=== PATIENT | female | born 1995 | race American Indian/Alaskan Native ===

== ENCOUNTER 2016-11-12 08:32 | Emergency (ER) | payer SELFPAY ==
[2016-11-12 09:33] LABS: Basophils % (Auto) 0.1 % (0.0-1.8); Eosinophils % (Auto) 0.1 % (0.0-4.3); Hemoglobin 15.2 gm/dl (10.1-14.3); Mean Corpuscular HGB Conc 33 % (30-34); Mean Corpuscular Hemoglobin 30 pg (28-32); Mean Corpuscular Volume 91 fl (79-97); Platelet Count 144 K/mm3 (140-440); Red Blood Count 5.07 M/mm3 (3.65-5.03); Red Cell Distribution Width 12.8 % (13.2-15.2); White Blood Count 16.6 K/mm3 (4.5-11.0)
[2016-11-12] MEDS ORDERED: NACL 0.9% 1000 ML 1,000 ML IV ONE ×2 (10:09→12:40)
[2016-11-12] MEDS ORDERED: ZOFRAN IV ONE (10:10)
--- NOTE | 2016-11-12 10:36 | Emergency Department Report ---
HPI - General Chief Complaint: Abdominal Pain Time Seen by Provider: 11/12/16 10:09 - HPI HPI: PATIENT WITH PELVIC PAIN, SEVERE NAUSEA, VOMITING, ABOUT 6 WEEKS . PATIENT WITH SIMILAR SYMPTOMS HER LAST . PATIENT STATES IT IS DIFFICULT FOR HER TO KEEP FOOD DOWN DUE TO HER SYMPTOMS. ED Past Medical Hx - Past Medical History Previous Medical History?: Yes Additional medical history: anemia - Surgical History Past Surgical History?: Yes Additional Surgical History: bilateral elbow surgery - Social History Smoking Status: Never Smoker - Medications Home Medications: Home Medications Medication Instructions Recorded Confirmed Last Taken Type No Known Home Medications [No 11/12/16 11/12/16 Unknown History Reported Home Medications] ED Review of Systems ROS: Stated complaint: PREG/N/V X 3 DAYS Other details as noted in HPI Comment: All other systems reviewed and negative Constitutional: no symptoms reported Respiratory: no symptoms reported Gastrointestinal: nausea, vomiting Physical Exam - Physical Exam Vital Signs: Vital Signs 11/12/16 08:40 Temperature 98.1 F Pulse Rate 90 Respiratory 16 Rate Blood Pressure 121/60 O2 Sat by Pulse 100 Oximetry Physical Exam: GENERAL: The patient is well-developed well-nourished. HEENT: Normocephalic. Atraumatic. Extraocular motions are intact. Patient has moist mucous membranes. NECK: Supple. No meningitic signs are noted. There is no adenopathy noted. CHEST/LUNGS: Clear to auscultation. There is no respiratory distress noted. HEART/CARDIOVASCULAR: Regular. There is no tachycardia. There is no gallop rub or murmur. ABDOMEN: Abdomen is soft, nontender. Patient has normal bowel sounds. There is no abdominal distention. SKIN: There is no rash. There is no edema. There is no diaphoresis. NEURO: The patient is awake, alert, and oriented. The patient is cooperative. The patient has no focal neurologic deficits. The patient has normal speech and gait. Cranial nerves II through XII grossly intact, no drift. Negative Romberg MUSCULOSKELETAL: good rom in all ext ED Course Vital Signs 11/12/16 08:40 Temperature 98.1 F Pulse Rate 90 Respiratory 16 Rate Blood Pressure 121/60 O2 Sat by Pulse 100 Oximetry ED Medical Decision Making - Lab Data Result diagrams: 11/12/16 09:00 11/12/16 09:00 Critical care attestation.: If time is entered above; I have spent that time in minutes in the direct care of this critically ill patient, excluding procedure time. ED Disposition Clinical Impression: Dehydration, Vomiting affecting Disposition: DC-01 TO HOME OR SELFCARE Is pt being admited?: No Does the pt Need Aspirin: No Condition: Stable Instructions: Abdominal Pain (ED) Referrals: PRIMARY CARE, [Primary Care Provider] - 3-5 Days DAVID CHADWICK MD [Staff Physician] - 3-5 Days Forms: Work/School Release Form(ED)
[2016-11-12 11:11] LABS: Alanine Aminotransferase 10 units/L (7-56); Albumin 4.6 g/dL (3.9-5); Albumin/Globulin Ratio 1.2 %; Alkaline Phosphatase 65 units/L (35-129); Anion Gap 22 mmol/L; Blood Urea Nitrogen 9 mg/dL (7-17); Calcium 9.5 mg/dL (8.4-10.2); Carbon Dioxide 18 mmol/L (22-30); Chloride 100.1 mmol/L (98-107); Glucose 69 mg/dL (65-100); Potassium 3.9 mmol/L (3.6-5.0); Sodium 136 mmol/L (137-145); Total Protein 8.6 g/dL (6.3-8.2)
--- NOTE | 2016-11-12 11:42 | Ultrasound Report ---
ULTRASOUND OB LESS THAN 14 WEEKS - TRANSABDOMINAL AND TRANSVAGINAL INDICATION: Pelvic pain. Serum beta-hCG 46,202 units. COMPARISON: None similar at this institution. FINDINGS: Transabdominal and transvaginal pelvic sonography performed in this patient with LMP of 09/25/2016 and estimated menstrual age of 6 weeks and 6 days. It demonstrates an anteverted, gravid uterus estimated at 7.9 x 4.8 x 4.9 cm with a single, viable intrauterine gestation with heart rate of 126 beats per minute. Mean gestational sac diameter of 2.09 cm corresponds to 7 weeks and zero days. Mean crown-rump length of 0.39 cm corresponds to 6 weeks and zero days. Approximately 3 mm yolk sac also seen as also small crescentic subchorionic hemorrhage. Trace pelvic free fluid. Unremarkable ovaries, approximately 3.6 x 1.7 x 3.0 cm on the right and 2.5 x 1.1 x 1.6 cm on the left. CONCLUSION: 1. Single, live intrauterine gestation with an ultrasound estimated age of 6 weeks and 4 days and HUY of 07/04/2017. 2. Other findings, as above. Thank you for the opportunity to participate in this patient's care.
[2016-11-12] MEDS ORDERED: REGLAN ONE (12:37)
[2016-11-12] MEDS ORDERED: REGLAN IV ONE (12:40)
[2016-11-12 13:05] LABS: Bilirubin,Urine NEG (Negative); Blood,Urine NEG (Negative); Ketones,Urine 80 mg/dL (Negative); Leukocyte Esterase,Urine TR (Negative); Mucus,Urine 3+ /HPF; Nitrite,Urine NEG (Negative)
[2016-11-12 14:11] VITALS: BP 104/65
== END 2016-11-12 14:11 | disposition home or self-care (01) ==
LOC: ED 08:32
DX: O21.9 Vomiting of pregnancy, unspecified (principal); Z3A.01 Less than 8 weeks gestation of pregnancy
CPT/HCPCS: 36415; 76801; 76817; 80053; 81001; 82962; 83690; 84702; 85025; 86850; 86900; 86901; 96361; 96374; 96375; 99284; J2405; J2765; J7030

== ENCOUNTER 2018-04-30 18:58 | Emergency (ER) | payer SELFPAY ==
[2018-04-30 19:07] VITALS: BP 116/73
--- NOTE | 2018-04-30 19:41 | Emergency Department Report ---
ED Abdominal Pain HPI - General Chief Complaint: Abdominal Pain Stated Complaint: PAIN Time Seen by Provider: 04/30/18 19:35 Source: patient, family Mode of arrival: Ambulatory Limitations: No Limitations - History of Present Illness Initial Comments: pt with + home - LMP 03/20- here today c/o sharp pelvic pain+ vaginal discharge that has a "smell"," swollen boobs with milk coming out of them", denies vaginal bleeding MD Complaint: abdominal pain, other (discharge) -: This afternoon Location: suprapubic Radiation: none Migration to: no migration Severity: severe Severity scale (0 -10): 8 Quality: sharp Consistency: constant Improves With: nothing Worsens With: nothing Associated Symptoms: other (vaginal discharge). denies: nausea, vomiting, diarrhea, fever, chills, constipation, dysuria, hematemesis, hematochezia, melena, hematuria, anorexia, syncope - Related Data Previous Rx's Medication Instructions Recorded Last Taken Type Nitrofurantoin Monohyd/M-Cryst 100 mg PO BID #20 capsule 02/03/18 Unknown Rx [Macrobid 100 mg Capsule] cephALEXin [Keflex] 500 mg PO Q8HR #21 cap 03/11/18 Unknown Rx Vit-Fe Fumar-FA [ 1 tab PO QDAY #30 tablet 04/30/18 Unknown Rx Vitamin] metroNIDAZOLE 0.75% [Vandazole 1 applicator VG QHS 7 Days #1 tube 04/30/18 Unknown Rx 0.75% VAGINAL] Allergies Allergy/AdvReac Type Severity Reaction Status Date / Time No Known Allergies Allergy Verified 03/11/18 13:00 ED Review of Systems ROS: Stated complaint: PAIN Other details as noted in HPI Constitutional: denies: chills, fever ENT: denies: ear pain Respiratory: denies: cough, shortness of breath, wheezing Cardiovascular: denies: chest pain Gastrointestinal: abdominal pain. denies: nausea, vomiting, diarrhea, other Genitourinary: discharge. denies: urgency, dysuria, frequency, hematuria, abnormal menses Musculoskeletal: denies: back pain, joint swelling, arthralgia Skin: denies: rash Neurological: denies: headache ED Past Medical Hx - Past Medical History Previous Medical History?: Yes Additional medical history: anemia - Surgical History Past Surgical History?: Yes Additional Surgical History: bilateral elbow surgery - Family History Family history: no significant (painful) - Social History Smoking Status: Never Smoker Substance Use Type: None - Medications Home Medications: Home Medications Medication Instructions Recorded Confirmed Last Taken Type Nitrofurantoin Monohyd/M-Cryst 100 mg PO BID #20 capsule 02/03/18 Unknown Rx [Macrobid 100 mg Capsule] cephALEXin [Keflex] 500 mg PO Q8HR #21 cap 03/11/18 Unknown Rx Vit-Fe Fumar-FA [ 1 tab PO QDAY #30 tablet 04/30/18 Unknown Rx Vitamin] metroNIDAZOLE 0.75% [Vandazole 1 applicator VG QHS 7 Days #1 tube 04/30/18 Unknown Rx 0.75% VAGINAL] ED Physical Exam - General Limitations: No Limitations (my) General appearance: alert, in no apparent distress - Head Head exam: Present: atraumatic, normocephalic, normal inspection - Eye Eye exam: Present: normal appearance, PERRL, EOMI Pupils: Present: normal accommodation - ENT ENT exam: Present: normal exam, normal orophraynx - Neck Neck exam: Present: normal inspection, tenderness - Respiratory Respiratory exam: Present: normal lung sounds bilaterally, respiratory distress - Cardiovascular Cardiovascular Exam: Present: regular rate, normal rhythm, normal heart sounds - GI/Abdominal GI/Abdominal exam: Present: soft, normal bowel sounds. Absent: distended, tenderness, guarding, rebound, rigid - Extremities Exam Extremities exam: Present: normal inspection, full ROM, normal capillary refill, other (No cce. + 2 pulses in all extremities, no neurovascular compromise). Absent: tenderness, pedal edema, joint swelling, calf tenderness - Back Exam Back exam: Present: normal inspection, full ROM - Neurological Exam Neurological exam: Present: alert, oriented X3, normal gait - Psychiatric Psychiatric exam: Present: normal affect, normal mood - Skin Skin exam: Present: warm, dry, intact, normal color. Absent: rash ED Course Vital Signs 04/30/18 19:02 Temperature 99.2 F Pulse Rate 97 H Respiratory 18 Rate Blood Pressure 116/73 O2 Sat by Pulse 100 Oximetry - Reevaluation(s) Reevaluation #1: 04/30/18 21:32 Patient with positive and positive BV. Pelvic exam shows large amount of foul-smelling discharge. I discussed the patient whether she wants to be treated for gonorrhea and chlamydia are weight for the past and she chose to be treated so she was given Rocephin 250 mg IM, Zithromax 1 g by mouth and patient will UTI and she said that she was given prescription for for urinary tract infection but she just filled it and did not take it. She said she was prescribed Keflex. Record show that the patient was prescribed Keflex and I gave her a dose of 500 mg here and told her she needs to start taking Keflex in the morning to cover UTI. She is away then ultrasound. ED Medical Decision Making - Lab Data Lab Results 04/30/18 04/30/18 04/30/18 Range/Units 20:03 20:43 21:09 HCG, Quant 25012 H (0-4) mIU/mL Urine Color Yellow (Yellow) Urine Turbidity Cloudy (Clear) Urine pH 7.0 (5.0-7.0) Ur Specific [place] 1.018 (1.003-1.030) Urine Protein <15 mg/dl (Negative) mg/dL Urine Glucose (UA) Neg (Negative) mg/dL Urine Ketones Neg (Negative) mg/dL Urine Blood Neg (Negative) Urine Nitrite Neg (Negative) Urine Bilirubin Neg (Negative) Urine Urobilinogen 4.0 (<2.0) mg/dL Ur Leukocyte Esterase Neg (Negative) Urine WBC (Auto) 9.0 H (0.0-6.0) /HPF Urine RBC (Auto) 5.0 (0.0-6.0) /HPF U Epithel Cells (Auto) 3.0 (0-13.0) /HPF Urine Bacteria (Auto) 1+ (Negative) /HPF Amorphous Crystals 1+ Urine Mucus 1+ /HPF Urine HCG, Qual Positive A (Negative) Urine culture pending Wet prep positive bacterial vaginosis, negative trichomoniasis and negative yeast Gonorrhea and chlamydia is pending - Radiology Data Radiology results: report reviewed Ultrasound transvaginal and transabdominal dictated by radiologist report reviewed by myself. Please see details below Findings [facility] [address] [place] [address] Ultrasound Report Signed Patient: DARRIAN NOEL MR#: [id number] : 1995 Acct:[id number] Age/Sex: 23 / F ADM Date: 04/30/18 Loc: ED Attending Dr: Ordering Physician: DUTCH HAMLIN Date of Service: 04/30/18 Procedure(s): US OB transvaginal Accession Number(s): [id number] cc: DUTCH HAMLIN FINAL REPORT EXAM: US OB TRANSVAGINAL HISTORY: with pelvic pain COMPARISON: None available. TECHNIQUE: Several real-time grayscale and color Doppler images were obtained. Transabdominal and transvaginal exam. FINDINGS: The uterus measures 8.0 x 4.3 x 6.1 centimeters. There is a single live IUP. Estimated gestational age 6 weeks 1 day. Estimated delivery date December 23, 2018. heart rate 118 beats per minute. Yolk sac is present. The right ovary measures 3.9 x 2.0 x 2.9 centimeters. There is a 1.9 centimeter right ovarian cystic structure which is thick walled. This may reflect corpus luteum. The left ovary measures 2.3 x 1.0 x 1.9 centimeters. There is vascular flow to the bilateral ovaries. No adnexal masses. Trace free pelvic fluid, within physiologic limits. IMPRESSION: Single live IUP. Estimated gestational age 6 weeks 1 day. Estimated delivery date December 23, 2018. 1.9 centimeter right ovarian cystic structure which may reflect corpus luteum. Transcribed By: LMA Dictated By: STEFANO FORRSET MD Electronically Authenticated By: STEFANO FORREST MD Signed Date/Time: 04/30/182223 DD/ 21 TD/TT: 04/30/182221 Findings [facility] [address] [place] [address] Patient with positive and positive BV. Pelvic exam shows large amount of foul-smelling discharge. I discussed the patient whether she wants to be treated for gonorrhea and chlamydia are weight for the past and she chose to be treated so she was given Rocephin 250 mg IM, Zithromax 1 g by mouth and patient will UTI and she said that she was given prescription for for urinary tract infection but she just filled it and did not take it. She said she was prescribed Keflex. Record show that the patient was prescribed Keflex . Patient discharged home in stable condition with prescription. She is to follow up with [facility] and pain is controlled. X-ray showing single live education at 6 weeks and 4 days and x-ray and laboratory results given to patient. - Medical Decision Making [facility] [address] [place] [address] Ultrasound Report Signed Patient: DARRIAN NOEL MR#: [id number] : 1995 Acct:[id number] Age/Sex: 21 / F ADM Date: 11/12/16 Loc: ED Attending Dr: Ordering Physician: WILL LUCIANO MD Date of Service: 11/12/16 Procedure(s): US OB transvaginal Accession Number(s): [id number] cc: WILL LUCIANO MD ULTRASOUND OB LESS THAN 14 WEEKS - TRANSABDOMINAL AND TRANSVAGINAL INDICATION: Pelvic pain. Serum beta-hCG 46,202 units. COMPARISON: None similar at this institution. FINDINGS: Transabdominal and transvaginal pelvic sonography performed in this patient with LMP of 09/25/2016 and estimated menstrual age of 6 weeks and 6 days. It demonstrates an anteverted, gravid uterus estimated at 7.9 x 4.8 x 4.9 cm with a single, viable intrauterine gestation with heart rate of 126 beats per minute. Mean gestational sac diameter of 2.09 cm corresponds to 7 weeks and zero days. Mean crown-rump length of 0.39 cm corresponds to 6 weeks and zero days. Approximately 3 mm yolk sac also seen as also small crescentic subchorionic hemorrhage. Trace pelvic free fluid. Unremarkable ovaries, approximately 3.6 x 1.7 x 3.0 cm on the right and 2.5 x 1.1 x 1.6 cm on the left. CONCLUSION: 1. Single, live intrauterine gestation with an ultrasound estimated age of 6 weeks and 4 days and HUY of 07/04/2017. 2. Other findings, as above. Thank you for the opportunity to participate in this patient's care. Transcribed By: RS Dictated By: IJMMY GRUBER MD Electronically Authenticated By: JIMMY GRUBER MD Signed Date/Time: 11/12/16 1135 DD/ 1124 TD/TT: 11/12/16 113 Critical care attestation.: If time is entered above; I have spent that time in minutes in the direct care of this critically ill patient, excluding procedure time. ED Disposition Clinical Impression: Vaginal discharge during in first trimester, Pelvic pain during pr egnancy, Bacterial vaginosis, Concern about STD in female without diagnosis UTI (urinary tract infection) during Qualifiers: Trimester: first trimester Qualified Code(s): O23.41 - Unspecified infection of urinary tract in , first trimester Disposition: TO HOME OR SELFCARE Is pt being admited?: No Does the pt Need Aspirin: No Condition: Stable Instructions: Bacterial Vaginosis (ED), Sexually Transmitted Diseases (ED), Safe Sex (ED), Urinary Tract Infection in Women (ED), Abdominal Pain in (ED) Additional Instructions: Your hormone tests today is 34,999 Please follow-up with [facility] as discussed within the next 2-3 days If he experiences vaginal bleeding and increase abdominal pain, return to the emergency room ALEYDA You have a urinary tract infection and U are given medication for this. Please start taking Keflex as prescribed previously. He received first dose emergency room today and you can start taking the pills that you have at home tomorrow Start taking an vitamin Increase the fluid intake facilities to 3 L of water daily You have bacterial vaginosis and she is to use MetroGel for treatment. Use as prescribed You were treated for gonorrhea and chlamydia due to vaginal discharge and that is malodorous. Your concern for STDs so was treated with Zithromax and Rocephin IM 1 dose. You will need to have a repeat urinary tests with the [facility] when you completely your antibiotic and also [facility] department in 7-10 days or we [facility] for repeat STD check. He can also return to medical records department in 4 days to get gonorrhea and chlamydia test results. Please refrain from drinking all call while on MetroGel as it can cause upset stomach and Rahda. Please do not have any sexual activity until your clear for STD. Have your partner get checked for STD HOW SHOULD I USE METRONIDAZOLE VAGINAL (METROGEL-VAGINAL, NUVESSA, VANDAZOLE)? Follow all directions on your prescription label. Do not use this medicine in larger or smaller amounts or for longer than recommended. Use this medicine at bedtime. Metronidazole vaginal is often given as a single dose. However, you might need to use the medicine for 5 nights in a row. Follow your doctor's dosing instructions very carefully. Do not take metronidazole vaginal by mouth. It is for use only in the vagina. Read all patient information, medication guides, and instruction sheets provided to you. Ask your doctor or pharmacist if you have any questions. Gently wash your vaginal area before applying the medicine. Wash your hands before and after handling the medicine tube or vaginal applicator. Insert the medicine directly into your vagina using the applicator provided. The single-use applicator is for one use only. Throw the applicator away after one use, even if there is still some medicine left in it after inserting your dose. If your medicine comes with only one plastic applicator, wash and rinse the applicator after each use. Throw away the applicator after you are finished using this medicine. Use this medicine for the full prescribed length of time. Your symptoms may improve before the infection is completely cleared. Skipping doses may also increase your risk of further infection that is resistant to antibiotics. You may need to use a sanitary napkin during treatment, but do not use a tampon. Do not use a douche or other vaginal product while using metronidazole vaginal. This medicine can cause unusual results with certain medical tests. Tell any doctor who treats you that you are using metronidazole vaginal. Call your doctor if your symptoms do not improve, or if they get worse. Metronidazole vaginal will not treat a vaginal yeast infection. You may even develop a new vaginal yeast infection after using this medicine. Watch for symptoms such as itching or discharge during or after treatment with metronidazole vaginal. Store at room temperature away from moisture or heat. Do not allow the medicine to freeze. WHAT HAPPENS IF I MISS A DOSE (METROGEL-VAGINAL, NUVESSA, VANDAZOLE)? Use the missed dose as soon as you remember. Skip the missed dose if it is almost time for your next scheduled dose. Do not use extra medicine to make up the missed dose. WHAT HAPPENS IF I OVERDOSE (METROGEL-VAGINAL, NUVESSA, VANDAZOLE)? An overdose of metronidazole vaginal is not expected to be dangerous. Seek emergency medical attention or call the Poison Help line at if anyone has accidentally swallowed the medication. WHAT SHOULD I AVOID WHILE USING METRONIDAZOLE VAGINAL (METROGEL-VAGINAL, NUVESSA, VANDAZOLE)? While you are using this medicine and for 24 hours after your last dose: Avoid drinking alcohol or consuming foods or other products that contain alcohol or propylene glycol. Check the ingredient label of all foods and beverages you consume. Avoid wearing tight-fitting, synthetic clothing such as nylon underwear or panty hose that does not allow air circulation. Wear loose-fitting clothing made of cotton and other natural fibers until your infection is healed. Avoid getting this medicine in your eyes, nose, or mouth. Rinse with water if this medicine gets into any of these areas. Avoid having sex until your vaginal infection has been completely treated. WHAT OTHER DRUGS WILL AFFECT METRONIDAZOLE VAGINAL (METROGEL-VAGINAL, NUVESSA, VANDAZOLE)? Tell your doctor about all your current medicines and any you start or stop using, especially: lithium; or a blood thinner (warfarin, Coumadin, Jantoven). This list is not complete. Other drugs may interact with metronidazole vaginal, including prescription and dzon-hsl-eawsbuf medicines, vitamins, and herbal products. Not all possible interactions are listed in this medication guide. WHERE CAN I GET MORE INFORMATION (METROGEL-VAGINAL, NUVESSA, VANDAZOLE)? Your pharmacist can provide more information about metronidazole vaginal. REMEMBER, KEEP THIS AND ALL OTHER MEDICINES OUT OF THE REACH OF CHILDREN, NEVER SHARE YOUR MEDICINES WITH OTHERS, AND USE THIS MEDICATION ONLY FOR THE INDICATION PRESCRIBED. Every effort has been made to ensure that the information provided by [employer] ('[employer]') is accurate, up-to-date, and complete, but no guarantee is made to that effect. Drug information contained herein may be time sensitive. [employer] information has been compiled for use by healthcare practitioners and consumers in the [place] and therefore [employer] does not warrant that uses outside of the [place] are appropriate, unless specifically indicated o therwise. [employer]'s drug information does not endorse drugs, diagnose patients or recommend therapy. [employer] drug information is an informational resource designed to assist licensed healthcare practitioners in caring for their patients and/or to serve consumers viewing this service as a supplement to, and not a substitute for, the expertise, skill, knowledge and judgment of healthcare practitioners. The absence of a warning for a given drug or drug combination in no way should be construed to indicate that the drug or drug combination is safe, effective or appropriate for any given patient. [employer] does not assume any responsibility for any aspect of healthcare administered with the aid of information [employer] provides. The information contained herein is not intended to cover all possible uses, directions, precautions, warnings, drug interactions, allergic reactions, or adverse effects. If you have questions about the drugs you are taking, check with your doctor, nurse or pharmacist. Prescriptions: metroNIDAZOLE 0.75% [Vandazole 0.75% VAGINAL] 1 applicator VG QHS 7 Days #1 tube Vit-Fe Fumar-FA [ Vitamin] 1 tab PO QDAY #30 tablet Referrals: RONNY ANDERSON MD [Staff Physician] - 2-3 Days Forms: Accompanied Note, STI Treatment and Prevention
[2018-04-30 20:18] LABS: Amorphous Crystals,Urine 1+; Bacteria,Urine 1+ /HPF (Negative); Bilirubin,Urine NEG (Negative); Blood,Urine NEG (Negative); Color,Urine Yellow (Yellow); Mucus,Urine 1+ /HPF; Protein,Urine <15 mg/dL mg/dL (Negative)
[2018-04-30 20:52] LABS: HCG Qualitative,Urine Positive (Negative)
[2018-04-30] MEDS ORDERED: ROCEPHIN IM ONE (20:58)
[2018-04-30] MEDS ORDERED: KEFLEX PO ONE (20:58)
[2018-04-30] MEDS ORDERED: XYLOCAINE 1% MPF 5 mL INFILTRATI ONE (20:58)
[2018-04-30] MEDS ORDERED: ZITHROMAX PO ONE (20:58)
--- NOTE | 2018-04-30 22:24 | Ultrasound Report ---
FINAL REPORT EXAM: US OB <= 14 WEEKS FETUS HISTORY: with pelvic pain COMPARISON: None available. TECHNIQUE: Several real-time grayscale and color Doppler images were obtained. Transabdominal and tr ansvaginal exam. FINDINGS: The uterus measures 8.0 x 4.3 x 6.1 centimeters. There is a single live IUP. Estimated gestational ag e 6 weeks 1 day. Estimated delivery date December 23, 2018. heart rate 118 beats per minute. Y olk sac is present. The right ovary measures 3.9 x 2.0 x 2.9 centimeters. There is a 1.9 centimeter right ovarian cystic structure which is thick walled. This may reflect corpus luteum. The left ovary measures 2.3 x 1.0 x 1.9 centimeters. There is vascular flow to the bilateral ovaries. No adnexal masses. Trace free pelvi c fluid, within physiologic limits. IMPRESSION: Single live IUP. Estimated gestational age 6 weeks 1 day. Estimated delivery date December 23, 2018. 1.9 centimeter right ovarian cystic structure which may reflect corpus luteum.
== END 2018-04-30 23:41 | disposition home or self-care (01) ==
LOC: ED 18:58
DX: O23.591 Infection of other part of genital tract in pregnancy, first trimester (principal); B96.89 Other specified bacterial agents as the cause of diseases classified elsewhere; O23.41 Unspecified infection of urinary tract in pregnancy, first trimester; O99.011 Anemia complicating pregnancy, first trimester; Z3A.01 Less than 8 weeks gestation of pregnancy
CPT/HCPCS: 36415; 76801; 76817; 81001; 81025; 84702; 87086; 87210; 87591; 96372; 99284; J0696